=== PATIENT | male | born 1965 | race African-American/Black ===

== ENCOUNTER 2020-09-28 11:33 | Emergency (ER) | payer SELFPAY ==
[~2020-09-28] VITALS: Ht 195.6 cm; Wt 77.7 kg
[2020-09-28] MEDS ORDERED: PLEASE ENTER ALLERGIES MC SCH (12:00)
[2020-09-28] MEDS ORDERED: SODIUM CHLORIDE 0.9% 1,000ML IVBOLUS ONE (12:00)
[2020-09-28] MEDS ORDERED: PLEASE ENTER HEIGHT AND WEIGHT MC SCH (12:00)
[2020-09-28] MEDS ORDERED: PANTOPRAZOLE 40 MG IV IVPush ONE (12:00)
[2020-09-28] MEDS ORDERED: ONDANSETRON 2MG/ML, 2ML IVPush ONE (12:00)
--- NOTE | 2020-09-28 12:00 | NUR ---
PT BIB EMS. WAS FOUND DOWN ON AND . ADMITS TO "8 SHOTS" OF ETOH TODAY. PT ALSO STATES HE HAS BEEN VOMITTING BLOOD. BYSTANDER ON SCENE TOLD EMS THERE WAS BLOOD AROUND HIS MOUTH AND THEY CLEANED HIM UP. PT WAS GIVEN [employer]. PT ALSO REPORTS TAKING A GLF YESTERDAY - RIGHT HAND IS SWOLLEN.
[2020-09-28 12:04] LABS: BASOPHILS % (AUTO) 2 % (0-1); EOSINOPHILS % (AUTO) 1 % (1-7); LYMPHOCYTES % (AUTO) 34 % (22-44); MEAN CORPUSCULAR HEMOGLOBIN 28.2 pg (27.5-34.5); MEAN CORPUSCULAR HGB CONC 32.7 g/dL (33.2-36.2); MONOCYTES % (AUTO) 7 % (2-9); NEUTROPHILS % (AUTO) 57 % (42-75); PLATELET COUNT 164 x10^3/uL (130-400); RED BLOOD COUNT 4.79 x10^6/uL (4.38-5.82); RED CELL DISTRIBUTION WIDTH 19.5 % (9.4-14.8)
[2020-09-28] MEDS ORDERED: ONDANSETRON 2MG/ML, 2ML ONE (12:04)
[2020-09-28] MEDS ORDERED: PANTOPRAZOLE 40 MG IV ONE (12:04)
[2020-09-28 12:15] LABS: ANION GAP 11 mmol/L (5-15); CALCIUM 7.8 mg/dL (8.5-10.1); CHLORIDE 105 mmol/L (98-107)
[2020-09-28 12:16] LABS: ALANINE AMINOTRANSFERASE 77 U/L (12-78); ALBUMIN 3.1 g/dL (3.4-5.0)
--- NOTE | 2020-09-28 12:17 | NUR ---
PT MEDICATED PER MAR
[2020-09-28 12:18] LABS: ALKALINE PHOSPHATASE 76 U/L (45-117); BILIRUBIN,TOTAL 0.5 mg/dL (0.2-1.0); TOTAL PROTEIN 7.8 g/dL (6.4-8.2)
[2020-09-28 13:18] VITALS: BP 133/88
== END 2020-09-28 19:44 | disposition home or self-care (01) ==
LOC: ED 18:35
DX: K29.21 Alcoholic gastritis with bleeding (principal); F10.120 Alcohol abuse with intoxication, uncomplicated; M25.531 Pain in right wrist; R11.2 Nausea with vomiting, unspecified; F17.210 Nicotine dependence, cigarettes, uncomplicated; Y90.0 Blood alcohol level of less than 20 mg/100 ml
CPT/HCPCS: 29125; 36415; 73130; 80053; 83690; 85025; 96361; 96374; 96375; 99284; C9113; J2405; J7030